=== PATIENT | male | born 1960 | race Caucasian/White ===

== ENCOUNTER 2023-06-11 22:23 | Inpatient (IN) | payer OTHER ==
[~2023-06-11 22:23] MED LIST: Iopamidol 370 76% 100 ML VIAL ONE
[2023-06-11 22:45] LABS: #Monocytes 0.7 thou/uL (0.11-0.59); #Neutrophils 9.1 thou/uL (1.40-6.50); %Basophils 0.2 % (0.0-1.0); %Eosinophils 0.1 % (0.0-10.0); %Lymphocytes 12.2 % (21.0-51.0); %Monocytes 5.9 % (0.0-10.0); %Neutrophils 80.9 % (42.0-75.0); Hematocrit 42.4 % (42.0-52.0); Mean Corpuscular HGB CONC 35.4 g/dL (32.0-36.0); Mean Corpuscular Hemoglobin 30.9 pg (27.0-31.0); Mean Corpuscular Volume 87.4 fl (78.0-98.0); Platelet Count 286 10x3/uL (130-400); RBC Distribution Width 12.1 % (11.5-14.5); Red Blood Cell (RBC) Count 4.85 mill/uL (4.70-6.10); White Blood Cell (WBC) Count 11.3 10x3/uL (4.8-10.8)
[2023-06-11] MEDS ORDERED: levETIRAcetam 500 MG/5 ML VIAL ONE (22:56)
[2023-06-11 23:07] LABS: ALT (SGPT) 24 U/L (8-55); AST (SGOT) 31 U/L (5-34); Albumin 4.8 g/dL (3.4-4.8); Alkaline Phosphatase 119 U/L (40-110); Anion Gap 22 mmol/L (10-20); BUN (Urea Nitrogen) 9 mg/dL (8.4-25.7); CK (CPK) 190 U/L (30-200); Calc. Creatinine Clearance 0 mL/min (70-130); Calcium 9.3 mg/dL (7.8-10.44); Carbon Dioxide 12 mmol/L (23-31); Chloride 86 mmol/L (98-107); Estimated GFR 101; Globulin 3.4 g/dL (2.4-3.5); Glucose 131 mg/dL (80-115); Potassium 4.9 mmol/L (3.5-5.1); Protein, Total 8.2 g/dL (5.8-8.1)
[2023-06-11 23:08] LABS: INR-International Normal Ratio 1.1; PTT 27.5 sec (22.9-36.1); Prothrombin Time 14.1 sec (12.0-14.7)
[2023-06-11 23:14] LABS: Sodium 115 mmol/L (136-145)
[2023-06-11] MEDS ORDERED: LORazepam 2 MG/ML SYR.(CARPUJECT) ONE (23:22)
[2023-06-11] MEDS ORDERED: Rocuronium Bromide 10 MG/ML (10ML VIAL) ONE (23:24)
[2023-06-11 23:39] LABS: Troponin I 0.016 ng/mL (< 0.028)
[2023-06-11 23:40] LABS: Alcohol Less than 10.0 mg/dL (Less than 10)
[2023-06-11] MEDS ORDERED: fentaNYL 50 mcg/mL 1 mL Vial ONE (23:40)
[2023-06-11 23:42] LABS: Magnesium 2.2 mg/dL (1.6-2.6)
[2023-06-11 23:43] LABS: Acetaminophen Less than 10 mcg/mL (10.0-30.0); Salicylate Less than 8.0 mg/dL (15.0-30.0)
[2023-06-11] MEDS ORDERED: Fentanyl CADD 100 ML IV SCH (23:45)
[2023-06-11 23:46] LABS: Actual Bicarbonate (HCO3a) 21.2 mEq/L (22-28); Analyzer IN Cardio ER; CO2 Tension 32.2 mmHg (35.0-45.0); Calcium, Ionized (arterial) 1.11 mmol/L (1.12-1.30); Carboxyhemoglobin (COHb) 1.2 gm% (0.0-3.0); Hematocrit-ABG 41 % (42.0-52.0); Hemoglobin (Hb) 14.1 g/dL (14.0-18.0); O2 Tension (PaO2), arterial 323.9 mmHg (> 80.0); Potassium - ABG Lab 4.18 mmol/L (3.70-5.30); pH, Arterial 7.437 (7.35-7.45)
[2023-06-11 23:50] LABS: Puncture Site RRA
[2023-06-11 23:53] LABS: Actual Bicarbonate (HCO3v) 20.3 mEq/L (22-28); Analyzer IN Cardio ER; Base Excess -3.6 mEq/L (-2.0 to +3.0); Calcium, Ionized (venous) 1.08 mmol/L (1.16-1.32); Chloride (VBG) 84 mmol/L (98-106); Hematocrit-VBG 45 % (42.0-52.0); Hemoglobin (Hb) 15.4 g/dL (13.1-17.2); pH (venous) 7.399 (7.32-7.43)
[2023-06-11 23:54] LABS: Sodium 116 mmol/L (133-146)
[2023-06-11] MEDS ORDERED: Sodium Chloride 3% 100 ML IVPB SCH (23:59)
[2023-06-12] MEDS ORDERED: cefTRIAXone (ROCEPHIN) 2 GM VIAL ONE
[2023-06-12] MEDS ORDERED: Sodium Chloride 0.9% 100 ML ONE (00:01)
[2023-06-12] MEDS ORDERED: Vancomycin (BATCH) 1.5 GM in Premix 1 BAG IVPB SCH (00:15)
[2023-06-12] MEDS ORDERED: Propofol 1,000 MG/100 ML VIAL IV ONE (00:55)
[2023-06-12] MEDS ORDERED: Ondansetron PF 4 MG/2 ML Vial IVP PRN (01:00)
[2023-06-12] MEDS ORDERED: Ondansetron ODT 4 MG TAB SL PRN (01:00)
[2023-06-12] MEDS ORDERED: Lactated Ringer's 1,000 ML IV SCH (01:00)
[2023-06-12 01:21] LABS: Amphetamine Not Detected (NotDetected); Barbiturates Screen Not Detected (NotDetected); Benzodiazepine Screen Not Detected (NotDetected); Cocaine Metabolite Screen Not Detected (NotDetected); Methadone Not Detected (NotDetected); Methamphetamine Not Detected (NotDetected); Opiate Screen Not Detected (NotDetected); Oxycodone Screen Not Detected (NotDetected); Phencyclidine (PCP) Not Detected (NotDetected); THC/Cannabinoid Screen Not Detected (NotDetected); Tricyclic Screen Not Detected (NotDetected)
[2023-06-12 02:08] LABS: Lactic Acid 1.1 mmol/L (0.5-2.2)
[2023-06-12] MEDS ORDERED: Fentanyl BOLUS 250 ML IVPB PRN (03:00)
[2023-06-12] MEDS ORDERED: DISCONTINUE PREVIOUS NARCOTIC PAIN MEDICATIONS AND BENZODIAZEPINES FS SCH (03:00)
[2023-06-12] MEDS ORDERED: Morphine 2 MG/ML VIAL SLOW IVP PRN (03:00)
[2023-06-12] MEDS ORDERED: Propofol BOLUS 1,000 MG/100 ML VIAL IV PRN (03:00)
[2023-06-12] MEDS ORDERED: Propofol 1,000 MG/100 ML VIAL IV PRN (03:00)
[2023-06-12] MEDS ORDERED: Ventilator Sedation Protocol 1 EACH FS ONE (03:16)
[2023-06-12] MEDS ORDERED: Glucagon 1 MG/ML KIT IM PRN (03:48)
[2023-06-12] MEDS ORDERED: Electrolyte Replacement Protocol 1 EACH FS PRN (03:48)
[2023-06-12] MEDS ORDERED: Dextrose 50% Abboject 50 ML SYRINGE SLOW IVP PRN (03:48)
[2023-06-12] MEDS ORDERED: Dextrose 5% in Water 1,000 ML IV PRN (03:48)
[2023-06-12 04:16] LABS: #Eosinphils 0.1 thou/uL (0.0-0.7); #Monocytes 0.7 thou/uL (0.11-0.59); #Neutrophils 6.1 thou/uL (1.40-6.50); %Basophils 0.3 % (0.0-1.0); %Eosinophils 0.7 % (0.0-10.0); %Lymphocytes 20.7 % (21.0-51.0); %Monocytes 7.7 % (0.0-10.0); %Neutrophils 70.1 % (42.0-75.0); Mean Corpuscular HGB CONC 36.6 g/dL (32.0-36.0); Mean Corpuscular Hemoglobin 30.6 pg (27.0-31.0); Mean Platelet Volume 8.2 fL (7.4-10.4); Platelet Count 265 10x3/uL (130-400); RBC Distribution Width 12.2 % (11.5-14.5); Red Blood Cell (RBC) Count 3.89 mill/uL (4.70-6.10); White Blood Cell (WBC) Count 8.7 10x3/uL (4.8-10.8)
[2023-06-12 04:58] LABS: Bacteria/HPF None Seen HPF (None Seen); Bilirubin Negative (Negative); Blood, Urine Negative (Negative); Clarity Clear (Clear); Glucose, Urine (Dipstick) Normal (Negative); Ketone, Urine Trace mg/dL (Negative); Leukocyte Negative Leu/uL (Negative); Nitrite Negative (Negative); Protein, Urine (Dipstick) Negative (Neg-Trace); RBC/HPF 0-3 HPF (0-3); Specific Gravity, Urine 1.008 (1.002-1.036); Squamous Epithelial None Seen HPF (0-3); Urobilinogen Normal mg/dL (Less than 2); WBC/HPF None Seen HPF (0-3)
[2023-06-12 05:43] LABS: Hemoglobin 11.9 g/dL (14.0-18.0)
[2023-06-12 05:44] LABS: Hematocrit 32.5 % (42.0-52.0); Mean Corpuscular Volume 83.5 fl (78.0-98.0)
[2023-06-12 06:22] LABS: Anion Gap 13 mmol/L (10-20); Carbon Dioxide 20 mmol/L (23-31); Chloride 91 mmol/L (98-107); Potassium 3.3 mmol/L (3.5-5.1); Sodium 121 mmol/L (136-145)
[2023-06-12 06:23] LABS: ALT (SGPT) 20 U/L (8-55); AST (SGOT) 28 U/L (5-34); Albumin 3.8 g/dL (3.4-4.8); Alkaline Phosphatase 87 U/L (40-110); BUN (Urea Nitrogen) 10 mg/dL (8.4-25.7); Bilirubin, Total 0.7 mg/dL (0.2-1.2); Calc. Creatinine Clearance 102 mL/min (70-130); Calcium 8.3 mg/dL (7.6-10.4); Estimated GFR 100; Globulin 2.7 g/dL (2.4-3.5); Glucose 93 mg/dL (80-115); Protein, Total 6.5 g/dL (5.8-8.1)
[2023-06-12] MEDS: Pantoprazole 40 MG VIAL IVP SCH (07:36)
[2023-06-12] MEDS: Potassium Chloride 20 MEQ in Premix 1 BAG IVPB SCH ×2 (07:36→09:00)
[2023-06-12 08:50] LABS: HIV (1/2) Antibody/Antigen Non-Reactive (NonReactive); HIV 1/2 INDEX 0.17 S/CO (<1.00)
[2023-06-12] MEDS ORDERED: Vancomycin 1 GM in Premix 1 BAG IVPB SCH (09:00)
[2023-06-12] MEDS: Sodium Chloride 0.9% 1,000 ML IV SCH ×2 (09:57→21:42)
[2023-06-12 10:22] LABS: Anion Gap 11 mmol/L (10-20); BUN (Urea Nitrogen) 8 mg/dL (8.4-25.7); Calc. Creatinine Clearance 108 mL/min (70-130); Calcium 8.9 mg/dL (7.8-10.44); Carbon Dioxide 21 mmol/L (23-31); Chloride 93 mmol/L (98-107); Estimated GFR 102; Glucose 79 mg/dL (80-115); Potassium 3.9 mmol/L (3.5-5.1); Sodium 121 mmol/L (136-145)
[2023-06-12 11:05] LABS: Syphilis Antibody REACTIVE (Nonreactive); Syphilis Antibody Index 23.72 S/CO (<1.00 Non-Reactive)
[2023-06-12] MEDS: Vancomycin (BATCH) 1.25 GM in Premix 1 BAG IVPB SCH (11:37)
[2023-06-12] MEDS: Lorazepam 2 MG/ML VIAL SLOW IVP PRN ×2 (11:39→12:53)
[2023-06-12 12:11] LABS: Anion Gap 11 mmol/L (10-20); BUN (Urea Nitrogen) 8 mg/dL (8.4-25.7); Calc. Creatinine Clearance 111 mL/min (70-130); Carbon Dioxide 23 mmol/L (23-31); Chloride 95 mmol/L (98-107); Estimated GFR 103; Glucose 80 mg/dL (80-115); Potassium 3.8 mmol/L (3.5-5.1); Sodium 125 mmol/L (136-145)
[2023-06-12] MEDS ORDERED: Sodium Chloride 0.9% 500 ML IV SCH (15:00)
[2023-06-12] MEDS ORDERED: NOREPINEPHRINE 8 MG/250 ML-D5W 250 ML IVPB SCH (15:15)
[2023-06-12 18:19] LABS: Potassium 3.7 mmol/L (3.5-5.1); Sodium 127 mmol/L (136-145)
[2023-06-12] MEDS: Dextrose 5% in Water 1,000 ML IV SCH (18:44)
[2023-06-12] MEDS: cefTRIAXone\\ROCEPHIN 2 GM in Sodium Chloride 0.9% 100 ML IVPB SCH (21:43)
[2023-06-13] MEDS: Vancomycin (BATCH) 1.25 GM in Premix 1 BAG IVPB SCH (00:29)
[2023-06-13] MEDS: Dextrose 5% in Water 1,000 ML IV SCH ×2 (03:51→16:06)
[2023-06-13 04:34] LABS: #Eosinphils 0.1 thou/uL (0.0-0.7); #Monocytes 0.7 thou/uL (0.11-0.59); #Neutrophils 5.3 thou/uL (1.40-6.50); %Basophils 0.5 % (0.0-1.0); %Lymphocytes 16.8 % (21.0-51.0); %Monocytes 9.1 % (0.0-10.0); %Neutrophils 72.2 % (42.0-75.0); Hematocrit 32.6 % (42.0-52.0); Hemoglobin 11.5 g/dL (14.0-18.0); Mean Corpuscular HGB CONC 35.3 g/dL (32.0-36.0); Mean Corpuscular Hemoglobin 30.7 pg (27.0-31.0); Mean Platelet Volume 8.5 fL (7.4-10.4); Platelet Count 270 10x3/uL (130-400); RBC Distribution Width 12.6 % (11.5-14.5); Red Blood Cell (RBC) Count 3.74 mill/uL (4.70-6.10); White Blood Cell (WBC) Count 7.3 10x3/uL (4.8-10.8)
[2023-06-13 04:41] LABS: Mean Corpuscular Volume 87.2 fl (78.0-98.0)
[2023-06-13 04:51] LABS: ALT (SGPT) 17 U/L (8-55); AST (SGOT) 31 U/L (5-34); Albumin 3.7 g/dL (3.4-4.8); Alkaline Phosphatase 86 U/L (40-110); Anion Gap 9 mmol/L (10-20); BUN (Urea Nitrogen) 6 mg/dL (8.4-25.7); Bilirubin, Total 0.8 mg/dL (0.2-1.2); Calc. Creatinine Clearance 119 mL/min (70-130); Calcium 8.5 mg/dL (7.8-10.44); Carbon Dioxide 24 mmol/L (23-31); Chloride 96 mmol/L (98-107); Estimated GFR 105; Globulin 2.5 g/dL (2.4-3.5); Glucose 98 mg/dL (80-115); Potassium 3.4 mmol/L (3.5-5.1); Protein, Total 6.2 g/dL (5.8-8.1); Sodium 126 mmol/L (136-145)
[2023-06-13] MEDS: Sodium Chloride 0.9% 1,000 ML IV SCH (06:20)
[2023-06-13] MEDS: Pantoprazole 40 MG VIAL IVP SCH ×2 (08:52→20:58)
[2023-06-13] MEDS ORDERED: Penicillin G Potassium 3 MILL.UNITS in Sodium Chloride 0.9% 100 ML IVPB SCH (09:15)
[2023-06-13] MEDS: Penicillin G Potassium 3 MILL.UNITS in Sodium Chloride 0.9% 50 ML IVPB SCH ×4 (11:29→22:36)
[2023-06-13] MEDS: Potassium Chloride 20 MEQ in Premix 1 BAG IVPB SCH ×2 (11:32→13:51)
[2023-06-13 17:16] LABS: Potassium 3.6 mmol/L (3.5-5.1); Sodium 125 mmol/L (136-145)
[2023-06-13] MEDS: cefTRIAXone\\ROCEPHIN 2 GM in Sodium Chloride 0.9% 100 ML IVPB SCH (21:01)
[2023-06-13] MEDS: Nicotine 14 MG PATCH TD SCH (22:29)
[2023-06-14] MEDS ORDERED: DC Sedation Protocol FS ONE (00:17)
[2023-06-14] MEDS: Penicillin G Potassium 3 MILL.UNITS in Sodium Chloride 0.9% 50 ML IVPB SCH ×6 (01:13→22:42)
[2023-06-14] MEDS ORDERED: traZODone HCl 50 MG TAB PO SCH (02:30)
[2023-06-14 04:20] LABS: #Eosinphils 0.1 thou/uL (0.0-0.7); #Monocytes 0.8 thou/uL (0.11-0.59); #Neutrophils 7.1 thou/uL (1.40-6.50); %Basophils 0.3 % (0.0-1.0); %Eosinophils 0.7 % (0.0-10.0); %Monocytes 8.3 % (0.0-10.0); %Neutrophils 77.3 % (42.0-75.0); Hematocrit 32.8 % (42.0-52.0); Mean Corpuscular HGB CONC 36.6 g/dL (32.0-36.0); Mean Corpuscular Hemoglobin 30.4 pg (27.0-31.0); Mean Platelet Volume 7.9 fL (7.4-10.4); Platelet Count 250 10x3/uL (130-400); RBC Distribution Width 12.1 % (11.5-14.5); Red Blood Cell (RBC) Count 3.95 mill/uL (4.70-6.10); White Blood Cell (WBC) Count 9.2 10x3/uL (4.8-10.8)
[2023-06-14 04:47] LABS: ALT (SGPT) 21 U/L (8-55); AST (SGOT) 44 U/L (5-34); Albumin 3.8 g/dL (3.4-4.8); Alkaline Phosphatase 89 U/L (40-110); Anion Gap 15 mmol/L (10-20); BUN (Urea Nitrogen) 5 mg/dL (8.4-25.7); Bilirubin, Total 0.9 mg/dL (0.2-1.2); Calc. Creatinine Clearance 129 mL/min (70-130); Calcium 8.6 mg/dL (7.8-10.44); Carbon Dioxide 22 mmol/L (23-31); Chloride 92 mmol/L (98-107); Estimated GFR 108; Globulin 2.9 g/dL (2.4-3.5); Glucose 89 mg/dL (80-115); Potassium 3.5 mmol/L (3.5-5.1); Protein, Total 6.7 g/dL (5.8-8.1); Sodium 125 mmol/L (136-145)
[2023-06-14] MEDS: Potassium Chloride 20 MEQ in Premix 1 BAG IVPB SCH ×2 (09:20→15:55)
[2023-06-14] MEDS: Pantoprazole 40 MG VIAL IVP SCH ×2 (09:20→20:44)
[2023-06-14] MEDS ORDERED: Lorazepam 0.5 MG TAB PO PRN (09:57)
[2023-06-14] MEDS ORDERED: Lorazepam 1 MG TAB PO PRN ×3 (09:57)
[2023-06-14] MEDS ORDERED: Lorazepam 2 MG/ML VIAL IM PRN (10:00)
[2023-06-14] MEDS ORDERED: Electrolyte Replacement Protocol 1 EACH FS PRN (10:00)
[2023-06-14] MEDS ORDERED: Ondansetron ODT 4 MG TAB PO PRN (10:00)
[2023-06-14] MEDS: Thiamine HCl 200 MG/2 ML VIAL SLOW IVP SCH (10:37)
[2023-06-14] MEDS ORDERED: Lorazepam 2 MG/ML VIAL SLOW IVP PRN (12:38)
[2023-06-14 17:13] LABS: Potassium 3.9 mmol/L (3.5-5.1); Sodium 129 mmol/L (136-145)
[2023-06-14] MEDS: Nicotine 14 MG PATCH TD SCH (20:44)
[2023-06-15] MEDS: Penicillin G Potassium 3 MILL.UNITS in Sodium Chloride 0.9% 50 ML IVPB SCH ×2 (01:43→06:15)
[2023-06-15 04:12] LABS: #Basophils 0.1 thou/uL (0.0-0.2); #Eosinphils 0.1 thou/uL (0.0-0.7); #Monocytes 0.7 thou/uL (0.11-0.59); #Neutrophils 3.7 thou/uL (1.40-6.50); %Basophils 0.8 % (0.0-1.0); %Eosinophils 2.3 % (0.0-10.0); %Lymphocytes 22.1 % (21.0-51.0); %Monocytes 12.3 % (0.0-10.0); %Neutrophils 61.8 % (42.0-75.0); Hematocrit 37.2 % (42.0-52.0); Hemoglobin 13.2 g/dL (14.0-18.0); Mean Corpuscular HGB CONC 35.5 g/dL (32.0-36.0); Mean Corpuscular Hemoglobin 30.2 pg (27.0-31.0); Mean Corpuscular Volume 85.1 fl (78.0-98.0); Mean Platelet Volume 8.3 fL (7.4-10.4); Platelet Count 284 10x3/uL (130-400); RBC Distribution Width 12.6 % (11.5-14.5); Red Blood Cell (RBC) Count 4.37 mill/uL (4.70-6.10)
[2023-06-15 04:35] LABS: ALT (SGPT) 18 U/L (8-55); AST (SGOT) 27 U/L (5-34); Albumin 4.1 g/dL (3.4-4.8); Alkaline Phosphatase 91 U/L (40-110); Anion Gap 14 mmol/L (10-20); BUN (Urea Nitrogen) 7 mg/dL (8.4-25.7); Bilirubin, Total 0.4 mg/dL (0.2-1.2); Calc. Creatinine Clearance 101 mL/min (70-130); Calcium 9.3 mg/dL (7.8-10.44); Carbon Dioxide 21 mmol/L (23-31); Chloride 100 mmol/L (98-107); Estimated GFR 102; Glucose 135 mg/dL (80-115); Potassium 3.6 mmol/L (3.5-5.1); Protein, Total 7.1 g/dL (5.8-8.1); Sodium 131 mmol/L (136-145)
[2023-06-15] MEDS: Multivit, Therapeutic 1 TAB PO SCH (08:07)
[2023-06-15] MEDS: Folic Acid 1 MG TAB PO SCH (08:07)
[2023-06-15] MEDS: Pantoprazole 40 MG VIAL IVP SCH ×2 (08:08→20:08)
[2023-06-15] MEDS ORDERED: Lorazepam 1 MG TAB PO PRN (10:00)
[2023-06-15] MEDS: Penicillin G Potassium 4 MILL.UNITS in Sodium Chloride 0.9% 100 ML IVPB SCH ×4 (13:13→21:00)
[2023-06-15] MEDS: Thiamine HCl 200 MG/2 ML VIAL SLOW IVP SCH (13:13)
[2023-06-15] MEDS: Nicotine 14 MG PATCH TD SCH (20:08)
[2023-06-16] MEDS: Penicillin G Potassium 4 MILL.UNITS in Sodium Chloride 0.9% 100 ML IVPB SCH ×6 (01:21→21:27)
[2023-06-16 06:56] LABS: Hematocrit 33.3 % (42.0-52.0); Hemoglobin 11.7 g/dL (14.0-18.0); Mean Corpuscular HGB CONC 35.1 g/dL (32.0-36.0); Mean Corpuscular Hemoglobin 30.6 pg (27.0-31.0); Mean Corpuscular Volume 87.2 fl (78.0-98.0); Mean Platelet Volume 8.5 fL (7.4-10.4); Platelet Count 322 10x3/uL (130-400); RBC Distribution Width 12.6 % (11.5-14.5); Red Blood Cell (RBC) Count 3.82 mill/uL (4.70-6.10); White Blood Cell (WBC) Count 5.7 10x3/uL (4.8-10.8)
[2023-06-16 07:05] LABS: Delete Auto Diff?? YES; Manual Diff?? YES
[2023-06-16 07:29] LABS: ALT (SGPT) 21 U/L (8-55); AST (SGOT) 24 U/L (5-34); Albumin 3.8 g/dL (3.4-4.8); Alkaline Phosphatase 87 U/L (40-110); Anion Gap 13 mmol/L (10-20); BUN (Urea Nitrogen) 8 mg/dL (8.4-25.7); Bilirubin, Total 0.4 mg/dL (0.2-1.2); Calc. Creatinine Clearance 108 mL/min (70-130); Calcium 9.1 mg/dL (7.8-10.44); Carbon Dioxide 21 mmol/L (23-31); Chloride 100 mmol/L (98-107); Estimated GFR 102; Globulin 2.8 g/dL (2.4-3.5); Glucose 133 mg/dL (80-115); Potassium 3.8 mmol/L (3.5-5.1); Protein, Total 6.6 g/dL (5.8-8.1); Sodium 130 mmol/L (136-145)
[2023-06-16 07:54] LABS: Burr Cells SLIGHT = 2-5 cells HPF (0-1); CellaVision Operator ID LAB.NR; Lymphocytes 18 % (21-51); Monocytes 7 % (0-10); Neutrophil 75 % (42-75); Platelet Adequacy Comment Platelets Normal; Poikilocytosis SLIGHT = 6-15 cells HPF (0-5); Polychromasia SLIGHT = 2-3 cells HPF (0-2); Schistocytes SLIGHT = 2-5 cells HPF (0-1); Total Cell Count 100
[2023-06-16] MEDS: Folic Acid 1 MG TAB PO SCH (09:07)
[2023-06-16] MEDS: Polyethylene Glycol 3350 17 GM Packet PO SCH (09:07)
[2023-06-16] MEDS: Multivit, Therapeutic 1 TAB PO SCH (09:07)
[2023-06-16] MEDS: Thiamine HCl 200 MG/2 ML VIAL SLOW IVP SCH (09:08)
[2023-06-16] MEDS: Pantoprazole 40 MG VIAL IVP SCH ×2 (09:08→21:27)
[2023-06-16] MEDS ORDERED: Lorazepam 1 MG TAB PO PRN (10:00)
[2023-06-16] MEDS: Nicotine 14 MG PATCH TD SCH (21:26)
[2023-06-17] MEDS: Penicillin G Potassium 4 MILL.UNITS in Sodium Chloride 0.9% 100 ML IVPB SCH ×2 (02:06→05:51)
[2023-06-17] MEDS ORDERED: Lorazepam 0.5 MG TAB PO PRN (06:00)
[2023-06-17] MEDS: Folic Acid 1 MG TAB PO SCH (08:36)
[2023-06-17] MEDS: Multivit, Therapeutic 1 TAB PO SCH (08:36)
[2023-06-17] MEDS: Thiamine 100 MG TAB PO SCH (08:36)
[2023-06-17] MEDS: Losartan 25 MG TAB PO SCH (08:36)
[2023-06-17] MEDS: Pantoprazole 40 MG VIAL IVP SCH ×2 (08:36→20:34)
[2023-06-17] MEDS: Polyethylene Glycol 3350 17 GM Packet PO SCH (08:36)
[2023-06-17 09:12] LABS: Hematocrit 36.9 % (42.0-52.0); Hemoglobin 13.1 g/dL (14.0-18.0); Mean Corpuscular HGB CONC 35.5 g/dL (32.0-36.0); Mean Corpuscular Hemoglobin 30.8 pg (27.0-31.0); Mean Corpuscular Volume 86.6 fl (78.0-98.0); Mean Platelet Volume 8.1 fL (7.4-10.4); Platelet Count 380 10x3/uL (130-400); RBC Distribution Width 12.6 % (11.5-14.5); Red Blood Cell (RBC) Count 4.26 mill/uL (4.70-6.10); White Blood Cell (WBC) Count 5.9 10x3/uL (4.8-10.8)
[2023-06-17 09:19] LABS: Delete Auto Diff?? YES
[2023-06-17 09:38] LABS: ALT (SGPT) 25 U/L (8-55); AST (SGOT) 26 U/L (5-34); Albumin 4.2 g/dL (3.4-4.8); Alkaline Phosphatase 96 U/L (40-110); Anion Gap 14 mmol/L (10-20); BUN (Urea Nitrogen) 6 mg/dL (8.4-25.7); Bilirubin, Total 0.7 mg/dL (0.2-1.2); Calc. Creatinine Clearance 0 mL/min (70-130); Calcium 9.7 mg/dL (7.8-10.44); Carbon Dioxide 22 mmol/L (23-31); Chloride 96 mmol/L (98-107); Estimated GFR 104; Globulin 3.3 g/dL (2.4-3.5); Glucose 89 mg/dL (80-115); Potassium 4.2 mmol/L (3.5-5.1); Protein, Total 7.5 g/dL (5.8-8.1); Sodium 128 mmol/L (136-145)
[2023-06-17 10:04] LABS: Burr Cells SLIGHT = 2-5 cells HPF (0-1); CellaVision Operator ID LAB.GE; Platelet Adequacy Comment Platelets Normal; Polychromasia SLIGHT = 2-3 cells HPF (0-2)
[2023-06-17] MEDS: Penicillin G Potassium 4 MILL.UNITS in Sodium Chloride 0.9% 50 ML IVPB SCH ×4 (10:20→21:47)
[2023-06-17 10:41] LABS: Cardiac Risk 4.2 (Less than 4.5)
[2023-06-17 11:13] LABS: Hemoglobin A1c 5.4 % (4.0-6.0)
[2023-06-17 15:12] LABS: Anion Gap 14 mmol/L (10-20); BUN (Urea Nitrogen) 6 mg/dL (8.4-25.7); Calc. Creatinine Clearance 0 mL/min (70-130); Calcium 9.6 mg/dL (7.8-10.44); Carbon Dioxide 23 mmol/L (23-31); Chloride 97 mmol/L (98-107); Estimated GFR 104; Glucose 91 mg/dL (80-115); Potassium 4.5 mmol/L (3.5-5.1); Sodium 129 mmol/L (136-145)
[2023-06-17 18:17] LABS: CSF, Glucose 45 mg/dl (40-70); CSF, Protein 69 mg/dL (15-40)
[2023-06-17 18:58] LABS: CSF Source CSF; Clarity Clear (Clear); Tube # 4
[2023-06-17 19:00] LABS: Cell Count Non Hematic 13 %; Eosinophils 1 %; Lymphocytes 85 %; Segmented Neutrophils 1 %
[2023-06-17] MEDS: Atorvastatin Calcium 20 MG TAB PO SCH (20:34)
[2023-06-17] MEDS: Nicotine 14 MG PATCH TD SCH (20:34)
[2023-06-18] MEDS: Penicillin G Potassium 4 MILL.UNITS in Sodium Chloride 0.9% 50 ML IVPB SCH ×6 (01:53→21:43)
[2023-06-18 05:07] LABS: Hematocrit 36.9 % (42.0-52.0); Hemoglobin 13.2 g/dL (14.0-18.0); Manual Diff?? YES; Mean Corpuscular HGB CONC 35.8 g/dL (32.0-36.0); Mean Corpuscular Hemoglobin 31.1 pg (27.0-31.0); Mean Corpuscular Volume 86.8 fl (78.0-98.0); Mean Platelet Volume 8.2 fL (7.4-10.4); Platelet Count 374 10x3/uL (130-400); RBC Distribution Width 12.5 % (11.5-14.5); Red Blood Cell (RBC) Count 4.25 mill/uL (4.70-6.10); White Blood Cell (WBC) Count 7.3 10x3/uL (4.8-10.8)
[2023-06-18 05:08] LABS: Delete Auto Diff?? YES
[2023-06-18 05:23] LABS: ALT (SGPT) 26 U/L (8-55); AST (SGOT) 25 U/L (5-34); Albumin 4.1 g/dL (3.4-4.8); Alkaline Phosphatase 95 U/L (40-110); Anion Gap 13 mmol/L (10-20); BUN (Urea Nitrogen) 10 mg/dL (8.4-25.7); Bilirubin, Total 0.5 mg/dL (0.2-1.2); Calc. Creatinine Clearance 0 mL/min (70-130); Calcium 9.2 mg/dL (7.8-10.44); Carbon Dioxide 21 mmol/L (23-31); Chloride 98 mmol/L (98-107); Estimated GFR 100; Globulin 3.2 g/dL (2.4-3.5); Glucose 96 mg/dL (80-115); Potassium 4.1 mmol/L (3.5-5.1); Protein, Total 7.3 g/dL (5.8-8.1); Sodium 128 mmol/L (136-145)
[2023-06-18 05:46] LABS: Band 12 % (5-11); CellaVision Operator ID LAB.CLH1; Eosinophils 2 % (0-10); Lymphocytes 22 % (21-51); Monocytes 5 % (0-10); Neutrophil 57 % (42-75); Platelet Adequacy Comment Platelets Normal; Polychromasia SLIGHT = 2-3 cells HPF (0-2); Total Cell Count 100
[2023-06-18] MEDS: Thiamine 100 MG TAB PO SCH (08:23)
[2023-06-18] MEDS: Polyethylene Glycol 3350 17 GM Packet PO SCH (08:23)
[2023-06-18] MEDS: Pantoprazole 40 MG VIAL IVP SCH ×2 (08:23→20:34)
[2023-06-18] MEDS: Multivit, Therapeutic 1 TAB PO SCH (08:24)
[2023-06-18] MEDS: Folic Acid 1 MG TAB PO SCH (08:24)
[2023-06-18] MEDS: Losartan 25 MG TAB PO SCH (08:24)
[2023-06-18] MEDS: Atorvastatin Calcium 20 MG TAB PO SCH (20:34)
[2023-06-18] MEDS: Nicotine 14 MG PATCH TD SCH (20:34)
[2023-06-19] MEDS: Penicillin G Potassium 4 MILL.UNITS in Sodium Chloride 0.9% 50 ML IVPB SCH ×6 (01:33→21:50)
[2023-06-19 05:48] LABS: #Basophils 0.1 thou/uL (0.0-0.2); #Eosinphils 0.3 thou/uL (0.0-0.7); #Monocytes 0.9 thou/uL (0.11-0.59); #Neutrophils 5.8 thou/uL (1.40-6.50); %Basophils 0.8 % (0.0-1.0); %Lymphocytes 22.5 % (21.0-51.0); %Monocytes 9.4 % (0.0-10.0); %Neutrophils 63.6 % (42.0-75.0); Hematocrit 37.1 % (42.0-52.0); Hemoglobin 13.1 g/dL (14.0-18.0); Mean Corpuscular HGB CONC 35.3 g/dL (32.0-36.0); Mean Corpuscular Hemoglobin 30.6 pg (27.0-31.0); Mean Corpuscular Volume 86.7 fl (78.0-98.0); Mean Platelet Volume 8.1 fL (7.4-10.4); Platelet Count 388 10x3/uL (130-400); RBC Distribution Width 12.6 % (11.5-14.5); Red Blood Cell (RBC) Count 4.28 mill/uL (4.70-6.10); White Blood Cell (WBC) Count 9.1 10x3/uL (4.8-10.8)
[2023-06-19 06:11] LABS: ALT (SGPT) 26 U/L (8-55); AST (SGOT) 23 U/L (5-34); Albumin 4.3 g/dL (3.4-4.8); Alkaline Phosphatase 95 U/L (40-110); Anion Gap 12 mmol/L (10-20); BUN (Urea Nitrogen) 13 mg/dL (8.4-25.7); Bilirubin, Total 0.5 mg/dL (0.2-1.2); Calc. Creatinine Clearance 106 mL/min (70-130); Carbon Dioxide 23 mmol/L (23-31); Chloride 97 mmol/L (98-107); Estimated GFR 102; Globulin 3.1 g/dL (2.4-3.5); Glucose 98 mg/dL (80-115); Potassium 4.1 mmol/L (3.5-5.1); Protein, Total 7.4 g/dL (5.8-8.1); Sodium 128 mmol/L (136-145)
[2023-06-19] MEDS: Losartan 25 MG TAB PO SCH (08:26)
[2023-06-19] MEDS: Polyethylene Glycol 3350 17 GM Packet PO SCH (08:26)
[2023-06-19] MEDS: Folic Acid 1 MG TAB PO SCH (08:26)
[2023-06-19] MEDS: Thiamine 100 MG TAB PO SCH (08:26)
[2023-06-19] MEDS: Multivit, Therapeutic 1 TAB PO SCH (08:26)
[2023-06-19] MEDS: Pantoprazole 40 MG VIAL IVP SCH ×2 (08:26→21:36)
[2023-06-19 08:52] LABS: Anion Gap 12 mmol/L (10-20); BUN (Urea Nitrogen) 12 mg/dL (8.4-25.7); Calc. Creatinine Clearance 110 mL/min (70-130); Carbon Dioxide 22 mmol/L (23-31); Chloride 97 mmol/L (98-107); Estimated GFR 104; Glucose 101 mg/dL (80-115); Potassium 4.1 mmol/L (3.5-5.1); Sodium 127 mmol/L (136-145)
[2023-06-19] MEDS ORDERED: Losartan 25 MG TAB PO SCH (09:00)
[2023-06-19] MEDS ORDERED: Tolvaptan 15 MG TAB PO SCH (10:30)
[2023-06-19 19:40] LABS: Anion Gap 15 mmol/L (10-20); BUN (Urea Nitrogen) 15 mg/dL (8.4-25.7); Calc. Creatinine Clearance 89 mL/min (70-130); Calcium 9.4 mg/dL (7.8-10.44); Carbon Dioxide 20 mmol/L (23-31); Chloride 101 mmol/L (98-107); Estimated GFR 96; Glucose 102 mg/dL (80-115); Potassium 4.6 mmol/L (3.5-5.1); Sodium 131 mmol/L (136-145)
[2023-06-19] MEDS: Nicotine 14 MG PATCH TD SCH (21:36)
[2023-06-19] MEDS: Atorvastatin Calcium 20 MG TAB PO SCH (21:36)
[2023-06-20] MEDS: Penicillin G Potassium 4 MILL.UNITS in Sodium Chloride 0.9% 50 ML IVPB SCH ×4 (01:17→14:38)
[2023-06-20 06:12] LABS: Hematocrit 41.2 % (42.0-52.0); Hemoglobin 13.6 g/dL (14.0-18.0); Mean Corpuscular Hemoglobin 30.5 pg (27.0-31.0); Mean Corpuscular Volume 92.4 fl (78.0-98.0); Mean Platelet Volume 8.2 fL (7.4-10.4); Platelet Count 372 10x3/uL (130-400); RBC Distribution Width 12.9 % (11.5-14.5); Red Blood Cell (RBC) Count 4.46 mill/uL (4.70-6.10); White Blood Cell (WBC) Count 6.8 10x3/uL (4.8-10.8)
[2023-06-20 06:35] LABS: ALT (SGPT) 34 U/L (8-55); AST (SGOT) 29 U/L (5-34); Albumin 4.1 g/dL (3.4-4.8); Alkaline Phosphatase 92 U/L (40-110); Anion Gap 13 mmol/L (10-20); BUN (Urea Nitrogen) 14 mg/dL (8.4-25.7); Bilirubin, Total 0.4 mg/dL (0.2-1.2); Calc. Creatinine Clearance 101 mL/min (70-130); Calcium 9.3 mg/dL (7.8-10.44); Carbon Dioxide 22 mmol/L (23-31); Chloride 102 mmol/L (98-107); Estimated GFR 101; Globulin 3.4 g/dL (2.4-3.5); Glucose 106 mg/dL (80-115); Potassium 4.4 mmol/L (3.5-5.1); Protein, Total 7.5 g/dL (5.8-8.1); Sodium 133 mmol/L (136-145)
[2023-06-20 06:36] LABS: Delete Auto Diff?? YES; Manual Diff?? YES
[2023-06-20 07:49] LABS: Band 1 % (5-11); Burr Cells MODERATE= 6-15 cells HPF (0-1); CellaVision Operator ID LAB.GE; Eosinophils 2 % (0-10); Large Platelets 0.9 % (0-5); Lymphocytes 20 % (21-51); Metamyelocyte 1 % (0-0); Monocytes 4 % (0-10); Myelocyte 1 % (0-0); Neutrophil 69 % (42-75); Platelet Adequacy Comment Platelets Normal; Polychromasia SLIGHT = 2-3 cells HPF (0-2); Reactive Lymphocytes 1 % (0-10); Total Cell Count 116
[2023-06-20] MEDS: Folic Acid 1 MG TAB PO SCH (09:08)
[2023-06-20] MEDS: Thiamine 100 MG TAB PO SCH (09:08)
[2023-06-20] MEDS: Polyethylene Glycol 3350 17 GM Packet PO SCH (09:08)
[2023-06-20] MEDS: Multivit, Therapeutic 1 TAB PO SCH (09:08)
[2023-06-20] MEDS: Pantoprazole 40 MG VIAL IVP SCH (09:08)
[2023-06-20] MEDS: Losartan 25 MG TAB PO SCH (09:08)
[2023-06-20 12:46] VITALS: BMI 24.6
[2023-06-20 17:12] VITALS: BP 141/91; TEMP 97.8
[2023-06-20] MEDS ORDERED: Bicillin LA 2.4 MILL.UNITS/4 ML SYRINGE IM SCH (18:00)
[2023-06-21] MEDS ORDERED: Bicillin LA 2.4 MILL.UNITS/4 ML SYRINGE IM SCH (09:00)
== END 2023-06-20 18:20 | disposition home or self-care (01) | DRG 640 ==
LOC: ERS 22:23 → CCU 06-12 00:51 → IMCU/EMU 06-14 11:18 → T4-B 06-15 15:45
PROVIDERS: ADMIT Family Medicine; ATTEND Family Medicine
PROC: 4A033R1 Measurement of Arterial Saturation, Peripheral, Percutaneous Approach (ICD-10-PCS; 2023-06-11)
PROC: 0T9B70Z Drainage of Bladder with Drainage Device, Via Natural or Artificial Opening (ICD-10-PCS; principal; 2023-06-12)
PROC: 02HV33Z Insertion of Infusion Device into Superior Vena Cava, Percutaneous Approach (ICD-10-PCS; 2023-06-12)
PROC: 0BH17EZ Insertion of Endotracheal Airway into Trachea, Via Natural or Artificial Opening (ICD-10-PCS; 2023-06-12)
PROC: 4A00X4Z Measurement of Central Nervous Electrical Activity, External Approach (ICD-10-PCS; 2023-06-12)
PROC: 5A1945Z Respiratory Ventilation, 24-96 Consecutive Hours (ICD-10-PCS; 2023-06-12)
PROC: 009U3ZX Drainage of Spinal Canal, Percutaneous Approach, Diagnostic (ICD-10-PCS; 2023-06-17)
PROC: B01B1ZZ Fluoroscopy of Spinal Cord using Low Osmolar Contrast (ICD-10-PCS; 2023-06-17)
PROC: 02HV33Z Insertion of Infusion Device into Superior Vena Cava, Percutaneous Approach (ICD-10-PCS; 2023-06-18)
DX: E87.1 Hypo-osmolality and hyponatremia (principal); G93.41 Metabolic encephalopathy; J96.01 Acute respiratory failure with hypoxia; E87.20 Acidosis, unspecified; E87.6 Hypokalemia; A53.9 Syphilis, unspecified; I65.21 Occlusion and stenosis of right carotid artery; K59.00 Constipation, unspecified; E16.2 Hypoglycemia, unspecified; I12.9 Hypertensive chronic kidney disease with stage 1 through stage 4 chronic kidney disease, or unspecified chronic kidney disease; E11.22 Type 2 diabetes mellitus with diabetic chronic kidney disease; D63.1 Anemia in chronic kidney disease; N18.2 Chronic kidney disease, stage 2 (mild)
CPT/HCPCS: 36415; 36416; 36569; 36600; 62270; 70450; 70496; 70498; 71045; 80053; 80061; 80306; 80307; 81001; 82010; 82140; 82550; 82805; 82945; 83036; 83605; 83735; 83930; 83935; 84145; 84157; 84300; 84443; 84484; 84588; 85025; 85060; 85610; 85730; 86592; 86593; 86780; 86850; 86900; 86901; 87040; 87070; 87086; 87205; 87389; 87529; 89051; 93005; 93306; 94002; 94003; 95711; 95819; C1751; C9113; J0561; J0696; J1650; J1953; J2060; J2540; J2597; J2704; J3010; J3370; J3411; J3480; J3490; J7030; J7050; J7070; J7131; Q9967